=== PATIENT | female | born 1965 | race Caucasian/White ===

== ENCOUNTER 2024-01-21 16:46 | Emergency (ER) | payer OTHER, SELFPAY ==
[2024-01-21 16:48] VITALS: BP 136/80
--- NOTE | 2024-01-21 17:39 | ED.GENMED ---
History of Present Illness
General
Chief Complaint: Abdominal Pain
Time Seen by Provider: 01/21/24 17:33
History of Present Illness
History of Present Illness:
HPI: The patient with right upper quadrant without nausea or vomiting. She was concerned because she has a history of MGUS and also has a family history of colon cancer. She states she had a recent hemorrhoidal banding and most recently did have
some bright red blood as well but she saw her surgeon who did not think it was anything serious. She is scheduled for colonoscopy in 2 weeks. She also reports some global paresthesias. She describes discomfort in the lower portion of the right
side of the chest anteriorly.
EXAM:
GENERAL: Well appearing in no distress
HEENT: Moist oral mucosa
CARDIOVASCULAR: No murmurs, normal heart rate, regular rhythm, No chest wall tenderness
PULMONARY: No respiratory distress, breath sounds are clear and equal
ABDOMEN: Soft with no peritoneal signs, no tenderness
NEUROLOGIC: Excellent strength all extremities, no coordination deficits
PSYCHIATRIC: Appropriate mental status, normal insight and judgement, appears somewhat anxious
EXTREMITIES: Nontender, no edema, moves all extremities equally
SKIN: No rash, no lesions
TIME OF INITIAL ENCOUNTER: 6:00 PM
NUMBER AND COMPLEXITY OF PROBLEMS ADDRESSED AT THE ENCOUNTER
� Chronic conditions affecting care: MGUS
� Acute Exacerbation and/or Progression of Chronic Illness: This is an acute problem
� Differential Diagnosis includes: Biliary colic, cholecystitis, musculoskeletal/abdominal wall etiology, vital signs are not consistent with PE
AMOUNT AND/OR COMPLEXITY OF DATA TO BE REVIEWED AND ANALYZED
� I performed an independent evaluation of and my interpretation is:
EKG: Severe baseline artifact, sinus 87, no definite acute ST abnormality
CT:
X-rays: I personally chest x-ray and see no acute abnormality
Laboratory Studies: White count and hemoglobin are normal, chemistries unremarkable, LFTs and lipase
Other: Ultrasound of the right upper quadrant shows a contracted gallbladder but otherwise unremarkable
� Review of other/old records: I reviewed records. The patient had a fat pad biopsy due to monoclonal gammopathy of uncertain significance to rule out amyloidosis in 2021 which was negative for amyloid deposit
� Clinical information was obtained by an independent historian: Spoke to at bedside
� Prescriptions/Medications Considered but not given: Consider analgesia however the patient declines
� Further testing considered but not performed:
RISK OF COMPLICATIONS AND/OR MORBIDITY OR MORTALITY OF PATIENT MANAGEMENT
� Social determinants of health affecting care: Lives at home
� Discussion with other providers:
� Escalation of care including admission/observation vs risk of discharge considered: Blood work is reassuring. Imaging was also obtained. On reassessment at 7:40 PM, the patient appears very comfortable and I informed patient
of the results.
Phy Exam
Physical Exam
Physical Exam:
See HPI
Course
Orders/Labs/Results
Orders:
Orders
01/21/24 17:39
0.9% Sodium Chloride 1000 ml [Nss] 1,000 ml IV BOLUS
01/21/24 17:48
US Abdomen Complete/Upper Urgent
Comment:
Reason For Exam: RUQ pain
01/21/24 17:49
Electrocardiogram (*1) Urgent
Reason for Study: Chest Pain
EKG- Treatment ONCE
CR Chest - 2 Views Urgent
Comment:
Reason For Exam: R lower pain anterior
01/21/24 19:04
Complete Blood Count/With Diff Urgent
Comprehensive Metabolic Panel Urgent
Lipase Urgent
Abnormal Lab Results
01/21/24
19:04
RBC 3.84 L 10^6/uL
(4.20-5.40)
Hct 34.8 L %
(37.0-47.0)
MCH 32.0 H pg
(27.0-31.0)
MPV 11.5 H fL
(7.4-10.4)
Monocytes % 9.8 H %
(1.7-9.3)
Creatinine 0.5 L mg/dL
(0.6-1.0)
Glucose 118 H mg/dl
(70-99)
01/21/24 19:04
01/21/24 19:04
Vital Signs
Initial and Last Documented VS:
Initial Vital Signs
Temp Pulse Resp BP Pulse Ox
98.1 F 103 20 136/80 98
01/21/24 16:48 01/21/24 16:48 01/21/24 16:48 01/21/24 16:48 01/21/24 16:48
Last Documented Vital Signs
Temp Pulse Resp BP Pulse Ox
98.1 F 89 16 128/88 97
01/21/24 16:48 01/21/24 19:05 01/21/24 19:05 01/21/24 19:05 01/21/24 19:05
*Critical Care Note
Total Time (30-74mins, 75-104mins- exclusive of procedures): Not Applicable
ED Attending Note
-
Portions of this chart may have been created with voice recognition software.� Occasional wrong word or��sound alike� substitutions may have occurred due to the inherent limitations of voice recognition software.
Discharge Plan
Departure
Patient Disposition: Home (Routine Discharge)
Date of Disposition: 01/21/24
Time of Disposition: 19:40
Patient with high blood pressure during this ER visit?: Yes
Discharge Problem:
Abdominal pain
Instructions: Abdominal Pain, BLOOD PRESSURE
Prescriptions:
No Action
cholecalciferol (vitamin D3) [Vitamin D3] 25 mcg (1,000 unit) Tablet
25 mcg PO DAILY
B12 5,000-100 mcg Lozenge
1 reva SUBLINGUAL DAILY
Fish Oil 360 mg-144 mg- 216 mg-1,200 mg Capsule,Delayed Release(Dr/Ec)
1 cap PO DAILY
wllsnhgp-qbde-ggkhv-oreg-capry 100 mg-150 mg- 50 mg-150 mg Capsule
1 cap PO DAILY
Referrals:
Ella Cruz MD [Family Provider] -
Activity Restrictions/Additional Instructions:
The cause of your symptoms is unclear. Your white blood cell count and hemoglobin levels are normal. Chemistry levels including kidney function, function, and pancreas test are all normal. The ultrasound shows no clear abnormality to your
gallbladder, liver, spleen, pancreas or bile ducts. EKG appears unremarkable. Return here if worse or other concerns.
Interventions
Interventions:
*Risk Screen - Suicide Last Done: 01/21/24 16:48
*General Assessment Last Done: 01/21/24 16:48
*Neglect/Abuse Screening Last Done: 01/21/24 16:48
DI-Hhaxti-Dyigfjbusg Assessment Last Done: 01/21/24 19:08
Discharge Date and Time
Print Language: PASHTO
[2024-01-21 19:05] VITALS: BP 128/88; BMI 16.4
[2024-01-21 19:11] LABS: % Basophils 0.7 % (0-2); % Eosinophils 0.7 % (0-6); % Immature Granulocytes 0.2 % (0-0.5); % Lymphocytes 30.8 % (20.5-51.1); % Monocytes 9.8 % (1.7-9.3); % Neutrophils 57.8 % (42.2-75.2); Absolute Lymphocytes 1.8 10^3/uL (1.2-3.4); Absolute Monocytes 0.6 10^3/uL (0.1-0.6); Absolute Neutrophils 3.4 10^3/uL (1.4-6.5); Hematocrit 34.8 % (37.0-47.0); Hemoglobin 12.3 g/dL (12.0-16.0); Mean Corp Hgb Conc. 35.3 g/dL (33.0-37.0); Mean Corpuscular Volume 90.6 fL (81.0-99.0); Mean Platelet Volume 11.5 fL (7.4-10.4); Nucleated Red Blood Cells % 0 %; Platelet Count 217 10^3/uL (130-400); Red Blood Cell Count 3.84 10^6/uL (4.20-5.40); Red Cell Dist. Width 12.5 % (11.5-14.5); White Blood Cell Count 5.8 10^3/uL (4.8-10.8)
[2024-01-21 19:24] LABS: ALT (SGPT) 11 U/L (0-35); AST (SGOT) 18 U/L (14-36); Albumin 4.8 g/dl (3.5-5.0); Alkaline Phosphatase 83 U/L (38-126); Blood Urea Nitrogen 11 mg/dl (7-17); Calcium 9.7 mg/dl (8.4-10.2); Carbon Dioxide 23 mmol/L (22-30); Chloride 107 mmol/L (98-107); Estimated Creatinine Clearance 69 ml/min; Glucose 118 mg/dl (70-99); Lipase 53 U/L (23-300); Potassium 4.5 mmol/L (3.5-5.1); Sodium 142 mmol/L (135-145); Total Bilirubin 0.5 mg/dl (0.2-1.3); Total Protein 6.9 g/dl (6.3-8.2); eGFR > 60.00
== END 2024-01-21 19:51 | disposition home or self-care (01) ==
LOC: EMR 16:46
PROVIDERS: EMERGENCY PHYSICIAN Emergency Medicine; FAMILY PHYSICIAN Internal Medicine
DX: R10.11 Right upper quadrant pain (principal); R20.2 Paresthesia of skin; R07.89 Other chest pain; K92.1 Melena; R03.0 Elevated blood-pressure reading, without diagnosis of hypertension; D47.2 Monoclonal gammopathy; Z80.0 Family history of malignant neoplasm of digestive organs
CPT/HCPCS: 99284; 71046; 76700; 80053; 83690; 85025; 93005